=== PATIENT | male | born 1965 | race Caucasian/White ===

== ENCOUNTER 2017-06-18 20:04 | Inpatient (IN) | payer OTHER ==
[2017-06-18] MEDS ORDERED: Fentanyl 20 MCG/ML 250 ML ONE (20:14)
[2017-06-18] MEDS ORDERED: Fentanyl 100 MCG/2 ML VIAL ONE ×2 (20:20→20:31)
[2017-06-18 20:30] LABS: Oxyhemoglobin 88.8 % (94.0-97.0); Sodium 137 mmol/L (135-148)
[2017-06-18 20:32] LABS: Mechanical Tidal Volume 550 ml; Mode SIMV; Modified Allen's Test POSITIVE; Pressure Support 10 cmH2O; Vent YES
[2017-06-18 20:51] LABS: Bilirubin Negative (Negative); Blood, Urine Trace (Negative); Glucose, Urine (Dipstick) 250 mg/dL (Negative); Ketone, Urine Negative (Negative); Nitrite Negative (Negative); Protein, Urine (Dipstick) 30 mg/dL (Neg-Trace); Urobilinogen 0.2 mg/dL (0.2-1.0)
[2017-06-18 20:52] LABS: Bacteria/HPF None Seen HPF (None Seen); Hyaline Casts/LPF 4-6 HYALINE CAST LPF (0-3 Hyaline); RBC/HPF 0-3 HPF (0-3); Squamous Epithelial 0-3 HPF (0-3); WBC/HPF 0-3 HPF (0-3)
[2017-06-18 21:02] LABS: Amphetamine Not Detected (NotDetected); Methadone Not Detected (NotDetected); Methamphetamine Not Detected (NotDetected)
[2017-06-18 21:18] LABS: ALT (SGPT) 17 U/L (8-55); AST (SGOT) 27 U/L (5-34); Alkaline Phosphatase 76 U/L (40-150); Anion Gap 15 mmol/L (10-20); BUN (Urea Nitrogen) 10 mg/dL (8.4-25.7); Bilirubin, Total 0.5 mg/dL (0.2-1.2); CK (CPK) 327 U/L (30-200); Calc. Creatinine Clearance 0 mL/min (70-130); Calcium 9.3 mg/dL (7.8-10.44); Carbon Dioxide 30 mmol/L (22-29); Chloride 100 mmol/L (98-107); Estimated GFR-MDRD Greater than 90; Globulin 3.1 g/dL (2.4-3.5); Protein, Total 7.1 g/dL (6.0-8.3)
[2017-06-18 21:27] LABS: Troponin I 0.062 ng/mL (< 0.028)
[2017-06-18] MEDS ORDERED: HumaLOG 300 UNITS/3 ML VIAL SC PRN (21:34)
[2017-06-18] MEDS ORDERED: Ondansetron HCl/PF 4 MG/2 ML Vial IVP PRN (21:34)
[2017-06-18] MEDS ORDERED: Sedation Protocol FS ONE (21:34)
[2017-06-18 21:56] LABS: Band 9 % (5-11); Hematocrit 43.1 % (42.0-52.0); Metamyelocyte 2 % (0-0); Neutrophil 76 % (42-75); Reactive Lymphocytes 1 % (0-10); Red Blood Cell (RBC) Count 4.38 mill/uL (4.70-6.10)
[2017-06-18 22:02] LABS: Acetaminophen Less than 6.0 mcg/mL (10.0-30.0); Salicylate Less than 8.0 mg/dL (15.0-30.0)
[2017-06-18] MEDS ORDERED: Fentanyl 20 MCG/ML 250 ML IVPB SCH (22:05)
[2017-06-18] MEDS ORDERED: DISCONTINUE PREVIOUS NARCOTIC PAIN MEDICATIONS AND BENZODIAZEPINES FS SCH (22:05)
[2017-06-18] MEDS ORDERED: Dextrose 50% Abboject 50 ML SYRINGE IVP PRN (22:05)
[2017-06-18] MEDS ORDERED: Lorazepam 2 MG/ML VIAL SLOW IVP PRN (22:05)
[2017-06-18] MEDS ORDERED: Dextrose 5% in Water 1,000 ML IV PRN (22:05)
[2017-06-18] MEDS ORDERED: Propofol 1,000 MG/100 ML VIAL IV PRN (22:05)
[2017-06-18] MEDS ORDERED: Sodium Chloride 0.9% 1,000 ML IV SCH (22:21)
--- NOTE | 2017-06-18 22:37 | RAD ---
PORTABLE AP CHEST X-RAY 06/18/17 HISTORY: Altered mental status. COMPARISON: 06/13/11. Tracheostomy device is not longer seen, endotracheal tube is noted in place with the tip overlying t he T3-4 level and well above the level of aimee. Nasogastric tube is noted in place with tip overly ing the gastric fundus. There is atelectasis present at the right lung base. There is patchy parench ymal change sin the left mid lung zone which could be related to either atelectasis or focal area of pneumonitis. Aspiration pneumonitis could not be excluded. Cardiac silhouette and pulmonary vascula ture are within normal limits. No other interval change. IMPRESSION: 1. Endotracheal tube and nasogastric tube in place as described above. 2. Mild patchy density left mid lung zone. This could be related to volume loss, but developing pneumonia or aspiration pneumonitis cannot be entirely excluded. Followup evaluation is recommended . POS: [facility]
[2017-06-18 22:38] LABS: PTT 27.6 SEC (22.9-36.1); Prothrombin Time 12.3 SEC (12.0-14.7)
--- NOTE | 2017-06-18 23:10 | PDOC.EVN ---
Event Note - Event Note Event Note: Attending H&P I personally evaluated the patient and discussed the management with Dr. Leger. I have reviewed the written H&P and it is repeated by me. I agree with the History, Examination, Assessment and Plan documented above with any addition or exceptions noted below. Fiance, friend, community health navigator and [facility] scientologist meat team member are present at the bedside. He has a son. The scientologist meat team member has sent him a facebook msg to contact the hospital so we can talk to him. The community health navigator reports he has a medical POA/advance directive but he is unsure who has it. Mr Gu was found down by his fiance at approximately 5pm today. She awoke fro her nap and started looking for him at that time and found him down in the bathroom. The bathroom shelf was off the wall and on the ground with him suggesting he had pulled it down with him. He has a bruise/abrasion on his left frontal area, that was not present before his fall. Pat reports he was acting normal and no signs of illness (cough, fever, chest pain) prior to her taking at nap at 3pm. She notes he was drinking a lot of energy drinks, which is common for him. He doesn't much water. He ate a burger adn ice cream today for lunch. His appetite was good. He was intubated by EMS when they found him for airway protection for a GCS of 3. His labs are significant for an elevated WBC. Mildly elevated CPK, and indeterminate trops. His tox screen and UDS were negative. ABG shows significant A-a gradient. UA shows glucose. Head and neck CT report is pending. Neck collar remains in place. Chest xray shows left lower obe infiltrate. HPI suggest this could be aspiration pneumonia. He is comfortable with fentanyl drip, but arousable. His exam is significant for bilateral rhonchi. Pinpoint pupils. His HR is 95-100. Otherwise Vitals are normal. Mr Gu was found down, and at this time, the etiology is not confirmed. Several possibilities emerge from what we know: caffeine induced arrhythmia leading to syncope with head trauma from fall and aspiration pneumonia; pulmonary embolism leading to syncope with head trauma from fall and aspiration pneumonia; AMI leading to syncope with head trauma from fall and aspiration pneumonia; CAD leading to arrhythmia leading to syncope with head trauma from fall and aspiration pneumonia; accidental fall with head trauma from fall and aspiration pneumonia. In the meantime, we are starting empiric antibiotics for aspiration pneumonia, ordering a CTA of the chest, checking a caffeine level, and requesting an ethics consult to help establish medical decision maker. Dr Leger discussed case with Dr Sparks, who recommended sedation on the vent, and IV fluid therapy. DVT prophylasix. GI prophylaxis.
--- NOTE | 2017-06-18 23:14 | CT ---
CT HEAD WITHOUT IV CONTRAST 06/18/17 HISTORY: Altered mental status. Ramon coma scale of 3 on screen. Patient found unresponsive in bathroom at home. Forehead bruising. Pin point pupils. COMPARISON: 08/16/11. Nasogastric tube and endotracheal tubes are partially imaged. Low density focus is seen within the region of the anterior aspect body of the right caudate likely which has the appearance most likely attributable to remote lacunar infarction. There is a low densi ty area seen within the region of the left globus pallidus suggestive of a lacunar infarction of in determinate age. There is no acute cortical infarction, hemorrhage, mass effect, or midline shift. V entricular system is normal in size, shape, and position. There is mucosal thickening in the bilater al sphenoid sinuses and ethmoidal air cells with minimal air fluid level in the left maxillary antru m. The findings are probably related to intubation. Mastoid air cells are clear. Calvarial structure s are intact. There is minimal scalp soft tissue swelling in the bifrontal regions. No other interval change from prior exam. IMPRESSION: 1. Lacunar infarction left basal ganglia of indeterminate age. 2. Remote lacunar infarction in the body of the right caudate. 3. No acute cortical infarction or hemorrhage is seen. 4. Minimal fluid in the paranasal sinuses with opacification of a few ethmoidal air cells likel y related to intubation. POS: [facility]
--- NOTE | 2017-06-18 23:18 | CT ---
CT CERVICAL SPINE WITHOUT IV CONTRAST 06/18/17 HISTORY: Altered mental status. Stow coma scale of 3. Patient found unresponsive at home. COMPARISON: 08/02/11. TECHNIQUE: Contiguous axial CT images are obtained through the cervical spine from skull base through the cervi cothoracic junction. Sagittal and coronal reformat images are provided. FINDINGS: Endotracheal and nasogastric tubes are noted in place. Nasopharyngeal airway also noted in place. Tiny air fluid levels are seen in the left maxillary antrum and each sphenoid sinus likely related t o the intubation. 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 No fracture or subluxation is seen inv olving the cervical spine. There are a few scattered facet degenerative changes noted. Prevertebral soft tissues are within normal limits. IMPRESSION: 1. No acute fracture or subluxation involving the cervical spine. 2. Additional findings are as described above. POS: [facility]
[2017-06-18] MEDS: Sodium Chloride 0.9% 1,000 ML IV SCH (23:22)
[2017-06-18] MEDS: Ampicillin/Sulbactam 3 GM in Sodium Chloride 0.9% 100 ML IVPB SCH (23:32)
[2017-06-19 00:22] LABS: Troponin I 0.091 ng/mL (< 0.028)
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
[2017-06-19 02:50] LABS: #Basophils 0.1 thou/uL (0.0-0.2); #Eosinphils 0.1 thou/uL (0.0-0.7); #Lymphocytes 2.2 thou/uL (1.20-3.40); #Neutrophils 9.7 thou/uL (1.40-6.50); %Basophils 0.6 % (0.0-1.0); %Eosinophils 0.5 % (0.0-10.0); %Lymphocytes 16.9 % (21.0-51.0); %Monocytes 7.8 % (0.0-10.0); Mean Platelet Volume 6.5 fL (7.4-10.4); Red Blood Cell (RBC) Count 3.88 mill/uL (4.70-6.10); White Blood Cell (WBC) Count 13.1 thou/uL (4.8-10.8)
[2017-06-19 03:18] LABS: Anion Gap 11 mmol/L (10-20); BUN (Urea Nitrogen) 10 mg/dL (8.4-25.7); Calc. Creatinine Clearance 130 mL/min (70-130); Calcium 8.7 mg/dL (7.8-10.44); Carbon Dioxide 28 mmol/L (22-29); Chloride 105 mmol/L (98-107); Estimated GFR-MDRD Greater than 90
[2017-06-19 03:19] LABS: Troponin I 0.078 ng/mL (< 0.028)
[2017-06-19] MEDS: Ampicillin/Sulbactam 3 GM in Sodium Chloride 0.9% 100 ML IVPB SCH ×4 (05:02→23:25)
[2017-06-19 06:47] LABS: Oxyhemoglobin 97.6 % (94.0-97.0); Sodium 140 mmol/L (135-148)
[2017-06-19 06:48] LABS: Mechanical Tidal Volume 550 ml; Vent YES
[2017-06-19 06:49] LABS: Mode SIMV; Pressure Support 10 cmH2O
--- NOTE | 2017-06-19 07:07 | PDOC.FM ---
- Subjective Subjective: Patient mildly sedated and intubate. Responsive other than verbal. Follows commands. Denies memory of incident. Denies chest, head, abdominal pain. Hx of CVA. - Objective MAR Reviewed: Yes Vital Signs & Weight: Vital Signs (12 hours) Temp Pulse Resp BP Pulse Ox 06/19/17 07:00 100.4 F H 06/19/17 06:17 86 06/19/17 06:00 20 06/19/17 04:00 99.6 F 16 06/19/17 03:17 80 06/19/17 02:00 14 06/19/17 00:00 99.4 F 14 100 06/18/17 22:17 98 06/18/17 22:15 99.4 F 87 18 100 06/18/17 22:14 91 142/95 H 06/18/17 22:00 99.4 F Weight Weight 77.4 kg Most Recent Monitor Data Heart Rate from ECG 87 NIBP 153/81 NIBP BP-Mean 94 Respiration from ECG 17 SpO2 99 I&O: 06/18/17 06/19/17 06/20/17 06:59 06:59 06:59 Intake Total 1774 100 Output Total 725 40 Balance 1049 60 Result Diagrams: 06/19/17 02:41 06/19/17 02:41 Radiology: developing PNA or pneumonitis <Bre Howell - Last Filed: 06/19/17 11:08> - Objective Vital Signs & Weight: Vital Signs (12 hours) Temp Pulse Resp Pulse Ox 06/19/17 20:00 99.1 F 76 20 98 06/19/17 19:00 99.1 F 06/19/17 16:00 99.1 F 06/19/17 12:00 99.9 F H 97 06/19/17 09:04 99 18 96 Weight Weight 77.4 kg Most Recent Monitor Data Heart Rate from ECG 73 NIBP 137/80 NIBP BP-Mean 104 Respiration from ECG 21 SpO2 98 I&O: 06/18/17 06/19/17 06/20/17 06:59 06:59 06:59 Intake Total 1830.6 2033 Output Total 725 1620 Balance 1105.6 413 Result Diagrams: 06/19/17 02:41 06/19/17 02:41 <Helen Montiel - Last Filed: 06/19/17 21:07> Phys Exam - Physical Examination Constitutional: NAD intubated Respiratory: no wheezing rhonchi bilaterally Cardiovascular: RRR, no significant murmur Gastrointestinal: soft, non-tender, no distention, positive bowel sounds Musculoskeletal: no edema, pulses present (2+ post tibial ) Neurological: non-focal, moves all 4 limbs shakes head in response to questions, follow command with all 4 extremities <Bre Howell - Last Filed: 06/19/17 11:08> Dx/Plan (1) Encephalopathy acute Code(s): G93.40 - ENCEPHALOPATHY, UNSPECIFIED Status: Acute Plan: patient found down at home in bathroom. GCS of 3 on scene so RSI performed. Now appears neurologically intact and following commands. Troponins indeterminant but downtrending. CTA pending. TSH wnl. tachycardia for brief time overnight but no other arrhythmias noted since admission Likely extubate later this morning (2) Aspiration pneumonia Code(s): J69.0 - PNEUMONITIS DUE TO INHALATION OF FOOD AND VOMIT Status: Acute Plan: evidence for PNA on CXR and fever this morning. Will cover iwth unasyn <Bre Howell - Last Filed: 06/19/17 11:08> Attending Addendum - Attending Addendum I personally evaluated the patient and discussed the management with Dr. Howell I agree with the History, Examination, Assessment and Plan documented above with any addition or exceptions noted below- Patient now extubated. Does not recall events. Last thing he remembers was walking into the bathroom. Afebrile VSS A/P: 1) Acute encephalopathy- unclear etiology; continue to monitor. 2) Aspiration pneumonia- continue unasyn. <Helen Montiel - Last Filed: 06/19/17 21:07>
--- NOTE | 2017-06-19 08:16 | CT ---
PRELIMINARY REPORT/[facility]/EMERGENCY AFTER HOURS PROCEDURE: EXAM: CT Angiography Chest With Intravenous Contrast EXAM DATE/TIME: Exam ordered 06/19/2017 3:44 AM CLINICAL HISTORY: 52 years old, male; Signs and symptoms; Other: Unresponsive; Patient HX: M52 presents to ed via air ems. Ems reports patient was gcs of 3 on the scene. He was found unresponsive in his bathroom at [facility]. Ems reports forehead bruise and the patient with pinpoint pupils prior to rsi TECHNIQUE: Axial computed tomographic angiography images of the chest with intravenous contrast using pulmonary embolism protocol. Coronal reformatted images were created and reviewed. CONTRAST: 70 mL of isovue 370 administered intravenously. COMPARISON: No relevant prior studies available. FINDINGS: Pulmonary arteries: There is no evidence of peripheral filling defects within the pulmonary arterial circulation to suggest pulmonary embolism. Aorta: No acute findings. No thoracic aortic aneurysm. Lungs: There are bibasilar lung consolidations with patchy opacities in the RIGHT upper lobe suspici ous for pneumonia. Pleural space: No large effusion. No pneumothorax. Heart: Normal. No cardiomegaly. No significant pericardial effusion. No evidence of RV dysfunction. Bones/joints: No acute fracture. No dislocation. Soft tissues: Normal. Lymph nodes: Normal. No enlarged lymph nodes. Tubes, lines and devices: A nasogastric tube is present with tip at the gastroesophageal junction. A n endotracheal tube is present, lying with its tip 4 cm above the aimee. IMPRESSION: 1. There is no CT evidence of acute pulmonary embolism. 2. There are bibasilar lung consolidations with patchy opacities in the RIGHT upper lobe suspicious for pneumonia. 3. A nasogastric tube is present with tip at the gastroesophageal junction. Consider advancing by at least 4 cm. Thank you for allowing us to participate in the care of your patient. Dictated and Authenticated by: Sabino Olvera MD 06/19/2017 4:36 AM Central Time ([place] \T\ Alex) FINAL REPORT CTA CHEST WITH IV CONTRAST, 3D REFORMATTED IMAGES AND PE PROTOCOL: Agree with the preliminary report provided. 1. No acute central or segmental pulmonary embolism. Thee is bilateral lower lower lobe and right upper lobe consolidation which can be seen with pneumonia or aspiration. 2. NG tube is at the gastroesophageal junction. Recommend advancement. POS: [facility]
[2017-06-19] MEDS: Sodium Chloride 0.9% 1,000 ML IV SCH (08:35)
[2017-06-19] MEDS: Enoxaparin Sodium 40 MG/0.4 ML SYRINGE SC SCH (08:35)
[2017-06-19] MEDS ORDERED: Famotidine/PF 20 mg/2ml Vial SLOW IVP SCH (09:00)
[2017-06-19] MEDS ORDERED: Sodium Chloride 0.9% 1,000 ML IV SCH (11:02)
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
[2017-06-19] MEDS: Acetaminophen 325 MG TAB PO PRN (12:57)
[2017-06-19] MEDS ORDERED: Nicotine 21 MG PATCH TD SCH (13:00)
--- NOTE | 2017-06-19 14:11 | MRI ---
MRI BRAIN WITHOUT CONTRAST: History: Altered mental status, syncope. FINDINGS: Correlation is made with the previous day's CT scan. No restricted diffusion is seen. There is an old infarct in the right caudate. No evidence of transc ortical infarct, hemorrhage, midline shift, or abnormal extraaxial fluid collections are seen. The v entricular size is normal and the basal cisterns patent. There is mucosal disease in the paranasal s inuses. There is a small amount of fluid in the mastoid air cells. IMPRESSION: No evidence of acute intracranial process. POS: [facility]
[2017-06-19] MEDS: Pregabalin 75 MG CAP PO SCH (19:23)
[2017-06-19] MEDS: Acetaminophen/Codeine 30-300mg Tablet PO PRN (19:23)
[2017-06-19] MEDS: traZODone HCl 150 MG TAB PO SCH (19:24)
[2017-06-20 04:39] LABS: #Basophils 0.1 thou/uL (0.0-0.2); #Eosinphils 0.3 thou/uL (0.0-0.7); #Lymphocytes 2.2 thou/uL (1.20-3.40); #Monocytes 0.5 thou/uL (0.11-0.59); #Neutrophils 4.5 thou/uL (1.40-6.50); %Basophils 0.7 % (0.0-1.0); %Eosinophils 3.4 % (0.0-10.0); %Lymphocytes 29.5 % (21.0-51.0); %Monocytes 6.9 % (0.0-10.0); Mean Platelet Volume 7.4 fL (7.4-10.4); Red Blood Cell (RBC) Count 3.73 mill/uL (4.70-6.10); White Blood Cell (WBC) Count 7.5 thou/uL (4.8-10.8)
[2017-06-20 04:57] LABS: Anion Gap 10 mmol/L (10-20); BUN (Urea Nitrogen) 9 mg/dL (8.4-25.7); Calc. Creatinine Clearance 139 mL/min (70-130); Calcium 8.8 mg/dL (7.8-10.44); Carbon Dioxide 30 mmol/L (22-29); Chloride 102 mmol/L (98-107); Estimated GFR-MDRD Greater than 90
[2017-06-20] MEDS: Ampicillin/Sulbactam 3 GM in Sodium Chloride 0.9% 100 ML IVPB SCH (06:03)
--- NOTE | 2017-06-20 06:57 | PDOC.FM ---
- Subjective Subjective: Patient awake and alert. He states he has had pre-syncopal episodes for a while now and they occur approx once a week. They occur randomly without warning. He feels lightheaded and sometimes dizzy. It resolves over period of minutes after sitting and resting. Family was at bedside and assisted with some of history obtained yesterday. He was in hospital for similar episode back in 07/2011. Records reviewed from that visit indicate he had an out of hospital cardiac arrest thought to be secondary to overdose. No major neural deficit but is apparently not completing all ADLs. Living alone. He also has long history of narcotic abuse per patient's sister. He has been in and out of rehab numerous times. 35 pack year smoking history. - Objective Vital Signs & Weight: Vital Signs (12 hours) Temp Pulse Resp Pulse Ox 06/20/17 04:00 98.3 F 06/20/17 02:00 98.1 F 06/19/17 20:00 99.1 F 76 20 98 06/19/17 19:00 99.1 F Weight Weight 77.9 kg Most Recent Monitor Data Heart Rate from ECG 68 NIBP 119/55 NIBP BP-Mean 69 Respiration from ECG 19 SpO2 97 I&O: 06/18/17 06/19/17 06/20/17 06:59 06:59 06:59 Intake Total 1830.6 2695 Output Total 725 2320 Balance 1105.6 375 Result Diagrams: 06/20/17 03:56 06/20/17 03:56 Radiology: MRI BRAIN- no acute intracranial process. 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 chest CTA- no PE, evidence for BLL, RUL consolidation. ECHO- EF 55-60%, trace TR. <Bre Howell - Last Filed: 06/20/17 09:40> - Objective Vital Signs & Weight: Vital Signs (12 hours) Temp Pulse Resp Pulse Ox 06/20/17 07:15 98.6 F 69 22 H 97 06/20/17 07:00 98.6 F 06/20/17 04:00 98.3 F 06/20/17 02:00 98.1 F Weight Weight 77.9 kg Most Recent Monitor Data Heart Rate from ECG 82 NIBP 113/68 NIBP BP-Mean 78 Respiration from ECG 20 SpO2 97 I&O: 1006/20/17 06/21/17 06:59 06:59 06:59 Intake Total 1830.6 2695 786 Output Total 725 2320 800 Balance 1105.6 375 -14 Result Diagrams: 06/20/17 03:56 06/20/17 03:56 <Helen Montiel - Last Filed: 06/20/17 10:09> Phys Exam - Physical Examination Constitutional: NAD HEENT: PERRLA, moist MMs Respiratory: no wheezing, no rhonchi, clear to auscultation bilateral Cardiovascular: RRR Gastrointestinal: soft, non-tender, positive bowel sounds Musculoskeletal: no edema, pulses present Neurological: non-focal, normal sensation, moves all 4 limbs Psychiatric: A&O x 3 <Bre Howell - Last Filed: 06/20/17 09:40> Dx/Plan (1) Syncope and collapse Code(s): R55 - SYNCOPE AND COLLAPSE Status: Acute Plan: Unexplained diagnosis. No evidence for CVA on MRI. CTA head and neck this AM. no events on cardiac monitoring. electrolytes wnl at admission. No pulsatile mass appreciated in abdomen. BP have been stable throughout much of hospitalization. Only elevation occurred during spont breathing trial. Normal EF on ECHO and no evidence for failure. check orthostatics. Consult cardiology for possible event monitor and recommendations (2) Aspiration pneumonia Code(s): J69.0 - PNEUMONITIS DUE TO INHALATION OF FOOD AND VOMIT Status: Acute Plan: Day 3 of unasyn, likely transition to oral augmentin today or tomorrow. Remained afebrile overnight. (3) Encephalopathy acute Code(s): G93.40 - ENCEPHALOPATHY, UNSPECIFIED Status: Resolved (4) Respiratory failure requiring intubation Code(s): J96.90 - RESPIRATORY FAILURE, UNSP, UNSP W HYPOXIA OR HYPERCAPNIA Status: Resolved Plan: Intubated in field for GCS of 3 to protect airway. Extuated 06/19/17 (5) History of tobacco abuse Code(s): Z87.891 - PERSONAL HISTORY OF NICOTINE DEPENDENCE Status: Chronic Plan: nicoderm given . <Bre Howell - Last Filed: 06/20/17 09:40> Attending Addendum - Attending Addendum I personally evaluated the patient and discussed the management with Dr. Muehr. I agree with the History, Examination, Assessment and Plan documented above with any addition or exceptions noted below- Patient awake/alert. Denies any complaints. Afebrile VSS. A/P: 1) Syncope- h/o pre-syncopal events. Denies any associated palpitations or chest pain. Resolves with rest/sitting after 10-15 minutes. No dysrhythmias on monitor. Will have cardiology evaluate patient. 2) Aspiration pneumonitis- transition to po antibiotics today, 3) Acute encephalopathy-resolved. <Helen Montiel - Last Filed: 06/20/17 10:09>
[2017-06-20] MEDS ORDERED: Potassium Chloride 20 MEQ TAB PO SCH ×2 (08:00→09:45)
--- NOTE | 2017-06-20 08:06 | CT ---
PRELIMINARY REPORT/[facility]/EMERGENCY AFTER HOURS PROCEDURE: EXAM: CT Head Without Intravenous Contrast CLINICAL HISTORY: 52 years old, male; Signs and symptoms; Syncope and collapse; Patient HX: Syncope and collapse; Pt w as found down in shower. H/x abrasion on forehead. No surgery TECHNIQUE: Axial computed tomography images of the head/brain without intravenous contrast. COMPARISON: CT Brain WO Con 06/18/2017 9:01:12 PM FINDINGS: Brain: No acute findings. No hemorrhage. No significant white matter disease. No edema. Ventricles: No acute findings. No ventriculomegaly. Bones/joints: No acute findings. No acute fracture. Soft tissues: No acute findings. Sinuses: Unremarkable as visualized. No acute sinusitis. Mastoid air cells: Unremarkable as visualized. No mastoid effusion. IMPRESSION: No acute intracranial pathology. Thank you for allowing us to participate in the care of your patient. Dictated and Authenticated by: Sandhya Nowak MD 06/20/2017 5:34 AM Central Time ( \T\ [place]) EXAM: CT Angiography Head With Intravenous Contrast CLINICAL HISTORY: 52 years old, male; Signs and symptoms; Syncope and collapse; Patient HX: Syncope and collapse; Pt w as found down in shower. H/x abrasion on forehead. No surgery TECHNIQUE: Axial computed tomographic angiography images of the head with intravenous contrast using CT angiogr aphy protocol. Coronal and sagittal reformatted images were created and reviewed. CONTRAST: 95 mL of ISOVUE 370 administered intravenously. COMPARISON: No relevant prior studies available. FINDINGS: Right internal carotid artery: No acute findings. Intracranial segment is patent with no significant stenosis. No aneurysm. Right anterior cerebral artery: No acute findings. No occlusion or significant stenosis. No aneurysm . Right middle cerebral artery: No acute findings. No occlusion or significant stenosis. No aneurysm. Right posterior cerebral artery: No acute findings. No occlusion or significant stenosis. No aneurys m. Right vertebral artery: Unremarkable as visualized. Left internal carotid artery: No acute findings. Intracranial segment is patent with no significant stenosis. No aneurysm. Left anterior cerebral artery: No acute findings. No occlusion or significant stenosis. No aneurysm. Left middle cerebral artery: No acute findings. No occlusion or significant stenosis. No aneurysm. Left posterior cerebral artery: No acute findings. No occlusion or significant stenosis. No aneurysm . Left vertebral artery: Unremarkable as visualized. Basilar artery: No acute findings. No occlusion or significant stenosis. No aneurysm. IMPRESSION: No acute disease identified. No stenosis, occlusion, aneurysm, or dissection. EXAM: CT Angiography Neck With Intravenous Contrast CLINICAL HISTORY: 52 years old, male; Signs and symptoms; Syncope and collapse; Patient HX: Syncope and collapse; Pt w as found down in shower. H/x abrasion on forehead. No surgery TECHNIQUE: Axial computed tomographic angiography images of the neck with intravenous contrast using CT angiogr aphy protocol. CONTRAST: 95 mL of ISOVUE 370 administered intravenously. COMPARISON: CTA Angio Head W WO Joseph 06/20/2017 4:04:29 AM FINDINGS: VASCULATURE: Right common carotid artery: No acute findings. No significant stenosis. No dissection or occlusion. Right internal carotid artery: No acute findings. Extracranial segment is patent with no significant stenosis. No dissection or occlusion. Right external carotid artery: No acute findings. No occlusion. Right vertebral artery: No acute findings. No significant stenosis. No dissection or occlusion. Left common carotid artery: No acute findings. No significant stenosis. No dissection or occlusion. Left internal carotid artery: No acute findings. Extracranial segment is patent with no significant stenosis. No dissection or occlusion. Left external carotid artery: No acute findings. No occlusion. Left vertebral artery: No acute findings. No significant stenosis. No dissection or occlusion. NECK: Bones/joints: Chronic degenerative spinal changes without acute fracture or dislocation. Soft tissues: Unremarkable as visualized. No mass. CAROTID STENOSIS REFERENCE USING NASCET CRITERIA: % ICA stenosis = < 5 percent bilaterally. IMPRESSION: No acute disease identified. No stenosis, occlusion, aneurysm, or dissection. Thank you for allowing us to participate in the care of your patient. Dictated and Authenticated by: Sandhya Nowak MD 06/20/2017 5:41 AM Central Time ([place] \T\ [place]) FINAL REPORT HEAD CT WITHOUT CONTRAST CT ANGIOGRAM HEAD CT ANGIOGRAM NECK: DATE: 06/20/17. COMPARISON: None. HISTORY: Syncope, collapse, found down in shower. FINDINGS: Noncontrast-enhanced head CT as well as contrast-enhanced CT angiogram of head and neck provided. C T angiogram of head and neck performed with coronal and sagittal 3D reformatted imaging. I agree with the preliminary [facility] report. The noncontrast-enhanced head CT demonstrates mild mucosal thickening of the left maxillary sinus an d bilateral sphenoid sinuses. No displaced calvarial fracture is seen. There is no intracranial he morrhage, midline shift, mass effect, or ventricular enlargement. There is a small focus of low-den sity in the region of the caudate head on the right suggesting an area of prior ischemia. CT angiogram head demonstrates patency of bilateral distal vertebral arteries. A small focal area o f fenestration is seen involving the proximal aspect of the basilar artery. Basilar artery appears otherwise unremarkable. Bilateral posterior cerebral arteries/P1 segments are patent. The M1 and A 1 segment is patent. Bilateral MCA bifurcations, distal MCA branches, distal MAVERICK branches appear in tact. No hemodynamically significant stenosis, vascular occlusion or saccular aneurysm is seen invo lving the anterior or posterior circulation. CT angiogram of the neck demonstrates a normal appearance of the bilateral retroantral and paraphary ngeal fat. The parotid and submandibular glands appear grossly unremarkable. Evaluation of the upper lobes is slightly limited secondary to motion artifact. There is a suggesti on of a subtle patchy nodularity within the imaged right upper lobe, not mentioned in the preliminar y [facility] report. The origin of the innominate artery, left common carotid artery, left subclavian artery, right commo n carotid artery, and right subclavian artery demonstrate patency. There is mild atherosclerotic ca lcification at the origin of the left subclavian artery. Bilateral vertebral arteries are patent. There is no hemodynamically significant stenosis involving the common carotid or internal carotid artery on either side. Osseous structures demonstrate no acute osseous abnormality. IMPRESSION: 1. Noncontrast-enhanced head CT demonstrates no intracranial hemorrhage. 2. CT angiogram of the head and neck demonstrates patent arterial structures with no evidence for h emodynamically significant stenosis, arterial occlusion, or saccular aneurysm. 3. There is subtle patchy nodularity involving the imaged right upper lobe, which may be on the bas is of inflammatory/infectious pneumonitis. Recommend further assessment via chest radiograph. CODE T POS: [facility]
[2017-06-20] MEDS: Pregabalin 75 MG CAP PO SCH ×2 (08:51→20:20)
[2017-06-20] MEDS: Enoxaparin Sodium 40 MG/0.4 ML SYRINGE SC SCH (08:53)
[2017-06-20] MEDS: Nicotine 21 MG PATCH TD SCH (08:54)
[2017-06-20] MEDS ORDERED: FLU VACC QS2017-18 36 mo. & older 0.5 ML SYRINGE IM ONE (09:00)
[2017-06-20] MEDS: Acetaminophen/Codeine 30-300mg Tablet PO PRN (09:06)
--- NOTE | 2017-06-20 09:56 | PRG ---
DATE OF SERVICE: 06/20/2017 SERVICE: Pulmonary Medicine. INTERVAL HISTORY: The patient is doing great from a cardiovascular and respiratory standpoint. He is on room air and denies any shortness of breath or chest discomfort. Otherwise, there has been no change to his condition. There were no overnight events. PHYSICAL EXAMINATION: VITAL SIGNS: Afebrile, pulse 69, blood pressure 120/71, respirations 19, saturation 97% on room air . GENERAL: The patient is awake, alert, in no apparent distress. LUNGS: Excellent air entry with no prolonged expiratory phase, wheezing, rhonchi or crackles. HEART: Normal rate, regular. ABDOMEN: Soft, nontender, nondistended. Bowel sounds positive. MUSCULOSKELETAL: No cyanosis or clubbing. No pitting in the bilateral lower extremities. NEUROLOGIC: Grossly nonfocal. LABORATORY DATA: WBC 7.5, hemoglobin 12.2, and platelet 238,000. INR 0.9. Potassium 3.4. Basic m etabolic profile is otherwise unremarkable. Troponin is down trending to 0.078. IMAGING: CT of the [place] of [place] demonstrates no intracranial pathology. ASSESSMENT: 1. Acute hypoxic respiratory failure. 2. Community-acquired pneumonia, likely secondary to aspiration. 3. Chronic back pain. 4. Syncope. PLAN: Potassium will be replaced today. From my perspective, he is stable for transition out of e ICU to the telemetry unit where he can be monitored on telemetry for any cardiac events. I will c ontinue to follow for one additional day to verify the patient remains in stable condition.
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
[2017-06-20] MEDS: Ibuprofen 600 MG TAB PO PRN ×2 (14:12→20:20)
[2017-06-20] MEDS: Amoxicillin/Potassium Clav 875 MG TAB PO SCH (20:20)
[2017-06-20] MEDS: traZODone HCl 150 MG TAB PO SCH (20:20)
[2017-06-21 05:36] LABS: Hematocrit 41.4 % (42.0-52.0)
[2017-06-21 05:50] LABS: Anion Gap 11 mmol/L (10-20); BUN (Urea Nitrogen) 9 mg/dL (8.4-25.7); Calc. Creatinine Clearance 143 mL/min (70-130); Calcium 9.2 mg/dL (7.8-10.44); Carbon Dioxide 26 mmol/L (22-29); Chloride 106 mmol/L (98-107); Estimated GFR-MDRD Greater than 90; Magnesium 1.9 mg/dL (1.6-2.6)
[2017-06-21] MEDS ORDERED: Potassium Chloride 20 MEQ TAB PO SCH ×2 (08:00→12:00)
[2017-06-21] MEDS: Pregabalin 75 MG CAP PO SCH (08:44)
[2017-06-21] MEDS: Enoxaparin Sodium 40 MG/0.4 ML SYRINGE SC SCH (08:46)
--- NOTE | 2017-06-21 10:35 | PDOC.FM ---
- Subjective Subjective: Patient is doing well this morning without complaints. He has tolerated a diet well and transition off ventilator has went well. Has remained in Sinus rhythm since transfer to [facility]. Unclear still what caused his presumed syncopal episode. He is going for a stress test today. - Objective Vital Signs & Weight: Vital Signs (12 hours) Temp Pulse Resp BP BP BP Pulse Ox 06/21/17 08:38 98.2 F 89 17 154/80 H 145/81 H 149/82 H 99 06/21/17 04:06 97.7 F 73 18 133/73 96 06/21/17 00:29 95 Weight Weight 75.977 kg Most Recent Monitor Data Heart Rate from ECG 70 NIBP 113/68 NIBP BP-Mean 78 Respiration from ECG 18 SpO2 96 I&O: 06/20/17 06/21/17 06/22/17 06:59 06:59 06:59 Intake Total 2695 1176 Output Total 2320 2750 Balance 375 1574 Result Diagrams: 06/21/17 05:20 06/21/17 05:20 <Bre Howell - Last Filed: 06/21/17 10:33> - Objective Vital Signs & Weight: Vital Signs (12 hours) Temp Pulse Resp BP BP BP Pulse Ox 06/21/17 08:38 98.2 F 89 17 154/80 H 145/81 H 149/82 H 99 06/21/17 04:06 97.7 F 73 18 133/73 96 06/21/17 00:29 95 Weight Weight 75.977 kg Most Recent Monitor Data Heart Rate from ECG 70 NIBP 113/68 NIBP BP-Mean 78 Respiration from ECG 18 SpO2 96 I&O: 06/20/17 06/21/17 06/22/17 06:59 06:59 06:59 Intake Total 2695 1176 Output Total 2320 2750 Balance 375 1574 Result Diagrams: 06/21/17 05:20 06/21/17 05:20 <Helen Montiel - Last Filed: 06/21/17 10:51> Phys Exam - Physical Examination Constitutional: NAD HEENT: PERRLA, moist MMs Respiratory: no wheezing, no rales, no rhonchi, clear to auscultation bilateral Cardiovascular: RRR, no significant murmur Gastrointestinal: soft, non-tender Musculoskeletal: no edema Neurological: non-focal, moves all 4 limbs Psychiatric: A&O x 3 Deviation from normal: not very verbose in answering questions. <Bre Howell - Last Filed: 06/21/17 10:33> Dx/Plan (1) Syncope and collapse Code(s): R55 - SYNCOPE AND COLLAPSE Status: Acute Plan: Unexplained diagnosis. No evidence for CVA on MRI. CTA head wnl no events on cardiac monitoring. electrolytes wnl at admission. No pulsatile mass appreciated in abdomen. BP have been stable throughout much of hospitalization. Normal EF on ECHO and no evidence for failure. Plan for stress today and likely DC if this is negative. He will need to follow up with cardiology if an event monitor were considered outpatient . (2) Aspiration pneumonia Code(s): J69.0 - PNEUMONITIS DUE TO INHALATION OF FOOD AND VOMIT Status: Acute Plan: Patient now on augmentin and will need to cont for 3 more days. (3) Encephalopathy acute Code(s): G93.40 - ENCEPHALOPATHY, UNSPECIFIED Status: Resolved (4) Respiratory failure requiring intubation Code(s): J96.90 - RESPIRATORY FAILURE, UNSP, UNSP W HYPOXIA OR HYPERCAPNIA Status: Resolved Plan: Intubated in field for GCS of 3 to protect airway. Extuated 06/19/17 (5) History of tobacco abuse Code(s): Z87.891 - PERSONAL HISTORY OF NICOTINE DEPENDENCE Status: Chronic Plan: nicoderm given .smoking cessation recommended <Bre Howell - Last Filed: 06/21/17 10:33> Attending Addendum - Attending Addendum I personally evaluated the patient and discussed the management with Dr. Howell I agree with the History, Examination, Assessment and Plan documented above with any addition or exceptions noted below- Patient c/o LANE. Ambulating/ tolerating diet. Afebrile VSS A/P: 1) Possible syncopal episode- workup negative to date; Appreciate cardiology recommendations; plan for stress test today and discharge if negative. 2) Aspiration pneumonitis- continue oral abx, 3 ) Acute encephalopathy- resolved. <Helen Montiel - Last Filed: 06/21/17 10:51>
[2017-06-21] MEDS: Acetaminophen 325 MG TAB PO PRN ×2 (11:32→17:33)
--- NOTE | 2017-06-21 12:21 | PDOC.CTH ---
Cardiology Progress Note - Subjective He is doing well. No new issues or complaints. - Objective Vital Signs Temp Pulse Resp BP BP BP Pulse Ox 06/21/17 11:16 98.1 F 95 18 135/79 98 06/21/17 08:38 98.2 F 89 17 154/80 H 145/81 H 149/82 H 17 L 06/21/17 04:06 97.7 F 73 18 133/73 96 06/21/17 00:29 95 Weight 167 lb 8 oz 06/20/17 06/21/17 06/22/17 06:59 06:59 06:59 Intake Total 2695 1176 Output Total 2320 2750 Balance 375 -1574 - Physical Examination General/Neuro: alert & oriented x3, NAD Neck: no JVD present Lungs: CTA, unlabored respirations Heart: RRR Abdomen: NT/ND Extremities: other: (no edema.) - Telemetry Telemetry Rhythm: NSR - Labs Result Diagrams: 06/21/17 05:20 06/21/17 05:20 Troponin/CKMB CK-MB (CK-2) 2.1 ng/mL (0-6.6) 06/18/17 20:46 Troponin I 0.078 ng/mL (< 0.028) H 06/19/17 02:41 - Assessment/Plan 1. Unresponsiveness 2. Possible syncope 3. Hx of substance abuse/. 4. Ongoing tobacco use PLAN: - Nuclear MPI to be done today. - Replace K - If stress is normal he may be discharged home from cardiac perspective and follow up in 2 weeks in the office.
--- NOTE | 2017-06-21 14:05 | CON ---
DATE OF CONSULTATION: 06/21/2017 SERVICE: Pulmonary Medicine. INTERVAL HISTORY: The patient is doing fine from a cardiovascular and respiratory standpoint. He c urrently denies any fevers, chills, nausea, or vomiting. He is breathing comfortably. He has no sp ecific complaints at this time. There were no overnight events. PHYSICAL EXAMINATION: VITAL SIGNS: Afebrile, pulse 89, blood pressure 154/80, respirations 17, saturation 99% on room air . GENERAL: Patient is awake, alert, in no apparent distress. LUNGS: Decent air entry with no prolonged expiratory phase, wheezing, rhonchi, or crackles. HEART: Normal rate, regular. ABDOMEN: Soft, nontender, nondistended. Bowel sounds positive. MUSCULOSKELETAL: No cyanosis or clubbing. No pitting in the bilateral lower extremities. NEUROLOGIC: Grossly nonfocal. LABORATORY DATA: Hemoglobin 13.4. Basic metabolic profile is essentially unremarkable except for p otassium of 3.4, magnesium 1.9. ASSESSMENT: 1. Acute hypoxic respiratory failure, resolved. 2. Community-acquired pneumonia, secondary aspiration. 3. Chronic back pain. 4. Syncope. PLAN: We will continue replacing potassium. At this point, he has no ongoing need for inpatient Pu lmonary Critical Care opinion. As such, I will sign off. He can complete a 5-7 day course of antib iotic. Repeat chest x-ray in 6 weeks is indicated to make certain left mid lung zone infiltrate res olves. Please call if there are any changes in patient's condition.
[2017-06-21] MEDS: Nicotine 21 MG PATCH TD SCH (14:45)
[2017-06-21] MEDS: Amoxicillin/Potassium Clav 875 MG TAB PO SCH (14:45)
[2017-06-21] MEDS: Ibuprofen 600 MG TAB PO PRN (14:49)
[2017-06-21 15:46] VITALS: BP 133/77; TEMP 98.1
[2017-06-21] MEDS ORDERED: Regadenoson 0.4 MG/5 ML SYRINGE ONE (16:38)
--- NOTE | 2017-06-21 16:49 | NM ---
NUCLEAR MEDICINE CARDIAC PERFUSION EXAMINATION WITH EJECTION FRACTION 06/21/17 COMPARISON: None. HISTORY: 52-year-old male with syncope. history of stroke and coronary artery disease. TECHNIQUE: A single day nuclear medicine cardiac perfusion examination was performed. Rest images were obtained using 9 millicuries of technetium 99m Sestamibi. Stress images were obtained using 27 millicuries o f technetium 99m Sestamibi and Lexiscan. FINDINGS: Tomographic images show no fixed or reversible perfusion defects. Gated images show normal wall ulices on with ejection fraction of 61%. EDV is 122 mL. LHR is 0.1. TID is 1.1. IMPRESSION: No evidence of ischemia. POS: [facility]
--- NOTE | 2017-06-24 11:18 | DIS-2 ---
DATE OF ADMISSION: 06/18/2017 DATE OF DISCHARGE: 06/21/2017 ADMITTING ATTENDING: Dr. Alexander Scott. DISCHARGE ATTENDING: Dr. Helen Montiel. CONSULTATIONS: 1. Dr. Roblero, Pulmonology. 2. Dr. Garcai, Cardiology. DISCHARGE DIAGNOSES: 1. Acute encephalopathy requiring intubation secondary to unresponsiveness. 2. Possible syncope. 3. Tobacco abuse. 4. Aspiration pneumonia. 5. Depression. 6. History of substance abuse. 7. Hypokalemia, resolved. PROCEDURES AND IMAGIN. Cervical spine CT was performed on 06/18/2017 showing no acute fracture or subluxation involving the cervical spine. 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 2. Brain CT on 06/18/2017 showed lacunar infarction left basil ganglia of indeterminate age, remote lacunar infarction in the body of the right caudate, there was no acute cortical infarction or hemo rrhage seen. There was minimal fluid in the paranasal sinuses with opacification of a few ethmoidal air cells. 3. Chest x-ray on 06/18/2017 showed an endotracheal tube and nasogastric tube in place. There was mild patchy density in the left mid lung zone. 4. On 06/18/2017. A chest CTA was done that showed no acute central or segmental pulmonary embolis m. There were bilateral lower lobe and right upper lobe consolidation. 5. An echo was done on 07/2017 that showed left ventricular size normal. Ejection fraction was 55-60%. There was tricuspi d valve structurally normal and there was tricuspid regurgitation. 6. On 06/19/2017. A brain MRI was done that showed no evidence of acute intracranial process. 7. 06/20/2017, a CT angiography of brain and neck was done that showed no acute intracranial pathol ogy. There was no stenosis, occlusion, or aneurysm or dissection appreciated. 8. On 06/21/2017, nuclear medicine stress test was done that showed no evidence of ischemia with an EF of 61%. DISCHARGE MEDICATIONS: 1. Trazodone 150 mg p.o. at bedtime. 2. Cymbalta 20 mg p.o. daily. 3. Lyrica 75 mg p.o. b.i.d. 4. Augmentin 875 mg p.o. q.12 h. for 4 more days. HISTORY OF PRESENT ILLNESS AND HOSPITAL COURSE: This is a 52-year-old male with a past medical hist ory of chronic back pain, depression and a history of cardiac arrest back in 2010, who presented to [facility], brought in by EMS after being found down at his home. The patient had a GCS of 3 at his home. He will never lost pulse and was breathing okay, but secondary to airway protecti on. The patient was intubated on the field and subsequently brought into [facility]. The patient was extubated without complications within 24 hours of hospitalization. The patient continued to d o quite well on his own. The patient did report some feelings of lightheadedness that he has been h aving over an unknown period of time, but has never reported any syncopal episodes. At that time, p atient was found and presumably down for a number of minutes. His heart rate and blood pressure wer e within normal limits and it was thought likely not be cardiac in nature; however, an echo and stre ss test also did not show any abnormalities. The patient did not have any abnormalities on telemetr y during his hospital stay. The patient should follow up in the 2 weeks with Cardiology; and if bartholomew s so, consideration for further workup can be continued at that time. Patient cautioned to return t o the ER with seizure episodes. Patient encouraged to quit smoking. There was no evidence for stro ke during this episode time. There was also no evidence for pulmonary embolism and carotid arteries did not show any significant stenosis. The patient did have a significant history of substance abu se; however, at time of admission blood drug screen was negative. There was evidence for a pneumonia thought to be likely aspiration in nature upon his admission. He also had a white blood cell count of 22 at the time of admission. The patient was placed on Unasyn while in the ICU which was transitioned over to Augmentin and he will continue a 7 day course in [facility] outpatient setting. The patient was informed to follow up with his primary care physician within a week of discharge. DISPOSITION: Stable. DISCHARGE INSTRUCTIONS: 1. Location: Home. 2. Activity: As tolerated. 3. Diet: Regular. 4. Follow up with PCP in [place] within a week and follow up with Dr. Garcia within 1-2 weeks of isidro aguilar.
== END 2017-06-21 19:02 | disposition home or self-care (01) | DRG 208 ==
LOC: ERS 20:04 → EDBD 20:04 → CCU 20:37 → MERGE 20:37 → 2NO 06-20 13:10
PROVIDERS: ADMIT Family Medicine; ATTEND Family Medicine
PROC: 5A1935Z Respiratory Ventilation, Less than 24 Consecutive Hours (ICD-10-PCS; principal; 2017-06-18)
DX: J69.0 Pneumonitis due to inhalation of food and vomit (principal); J96.01 Acute respiratory failure with hypoxia; G93.40 Encephalopathy, unspecified; R55 Syncope and collapse; I25.10 Atherosclerotic heart disease of native coronary artery without angina pectoris; F41.9 Anxiety disorder, unspecified; S00.83XA Contusion of other part of head, initial encounter; G47.00 Insomnia, unspecified; R40.2431 Glasgow coma scale score 3-8, in the field [EMT or ambulance]; W18.30XA Fall on same level, unspecified, initial encounter; Y92.002 Bathroom of unspecified non-institutional (private) residence as the place of occurrence of the external cause; E03.9 Hypothyroidism, unspecified; F11.10 Opioid abuse, uncomplicated; Z86.73 Personal history of transient ischemic attack (TIA), and cerebral infarction without residual deficits; G89.29 Other chronic pain; Z86.74 Personal history of sudden cardiac arrest; F17.210 Nicotine dependence, cigarettes, uncomplicated; M54.5 Low back pain; Z23 Encounter for immunization; F32.9 Major depressive disorder, single episode, unspecified
CPT/HCPCS: 36415; 36416; 51702; 70450; 70496; 70498; 70551; 71010; 71275; 72125; 78452; 80048; 80053; 80306; 80307; 81003; 81015; 82550; 82553; 82805; 83605; 83735; 84443; 84484; 85014; 85018; 85025; 85610; 85730; 90471; 90682; 93005; 93010; 93017; 93306; 94002; 94003; 96365; 96375; 96376; 99292; A4216; A9500; G0008; J0295; J1650; J2785; J3010; J7050; Q2036; S0028

== ENCOUNTER 2022-03-19 20:02 | Inpatient (IN) | payer OTHER ==
[~2022-03-19 20:02] MED LIST: Iopamidol-370 76% 500 ML 1 ML ONE
[2022-03-19 21:12] LABS: #Basophils 0.1 thou/uL (0.0-0.2); #Eosinphils 0.1 thou/uL (0.0-0.7); #Lymphocytes 2.1 thou/uL (1.20-3.40); #Monocytes 0.8 thou/uL (0.11-0.59); %Basophils 0.8 % (0.0-1.0); %Lymphocytes 19.1 % (21.0-51.0); %Monocytes 7.3 % (0.0-10.0); %Neutrophils 71.7 % (42.0-75.0); Hemoglobin 15.6 g/dL (14.0-18.0); Mean Corpuscular HGB CONC 34.1 g/dL (32.0-36.0); Mean Corpuscular Hemoglobin 33.2 pg (27.0-31.0); Mean Corpuscular Volume 97.2 fL (78.0-98.0); Mean Platelet Volume 6.6 fL (7.4-10.4); Platelet Count 271 thou/uL (130-400); RBC Distribution Width 12.7 % (11.5-14.5); Red Blood Cell (RBC) Count 4.72 mill/uL (4.70-6.10); White Blood Cell (WBC) Count 11.1 thou/uL (4.8-10.8)
[2022-03-19 21:24] LABS: INR-International Normal Ratio 0.9; PTT 24.9 sec (22.9-36.1); Prothrombin Time 12.4 sec (12.0-14.7)
[2022-03-19 21:34] LABS: ALT (SGPT) 29 U/L (8-55); AST (SGOT) 32 U/L (5-34); Albumin 4.1 g/dL (3.5-5.0); Alkaline Phosphatase 59 U/L (40-110); Anion Gap 15 mmol/L (10-20); BUN (Urea Nitrogen) 11 mg/dL (8.4-25.7); Bilirubin, Total 0.7 mg/dL (0.2-1.2); Calc. Creatinine Clearance 0 mL/min (70-130); Calcium 9.5 mg/dL (7.8-10.44); Carbon Dioxide 23 mmol/L (22-29); Chloride 102 mmol/L (98-107); Estimated GFR 105; Globulin 3.2 g/dL (2.4-3.5); Glucose 98 mg/dL (70-105); Potassium 3.3 mmol/L (3.5-5.1); Protein, Total 7.3 g/dL (6.0-8.3); Sodium 137 mmol/L (136-145)
[2022-03-19] MEDS ORDERED: Clopidogrel Bisulfate 75 MG TAB ONE (21:50)
[2022-03-19] MEDS ORDERED: Acetaminophen 500 MG TAB ONE (22:18)
[2022-03-19] MEDS ORDERED: Nicotine 21 MG PATCH TD SCH (23:45)
[2022-03-19] MEDS ORDERED: Ondansetron PF 4 MG/2 ML Vial IVP PRN (23:47)
[2022-03-19] MEDS ORDERED: Guaifenesin DM 100-10/5 ML UDCUP PO PRN (23:47)
[2022-03-19] MEDS ORDERED: Bisacodyl 5 MG TAB PO PRN (23:47)
[2022-03-19] MEDS ORDERED: Senokot S 8.6-50 MG TAB PO PRN (23:47)
[2022-03-20] MEDS ORDERED: Atorvastatin Calcium 40 MG TAB PO SCH (00:30)
[2022-03-20 00:31] VITALS: BMI 27.2
[2022-03-20] MEDS ORDERED: Potassium Chloride 20 MEQ TAB PO SCH (00:31)
[2022-03-20] MEDS: Sodium Chloride 0.9% 1,000 ML IV SCH ×2 (01:02→14:52)
[2022-03-20] MEDS: Atorvastatin Calcium 40 MG TAB PO SCH ×3 (01:06→21:25)
[2022-03-20] MEDS: Acetaminophen 325 MG TAB PO PRN ×4 (04:02→21:23)
[2022-03-20 05:16] LABS: Hemoglobin A1c 5.3 % (4.0-6.0)
[2022-03-20] MEDS: Allopurinol 300 MG TAB PO SCH (09:49)
[2022-03-20] MEDS: Nicotine 21 MG PATCH TD SCH (15:02)
[2022-03-20] MEDS ORDERED: hydrALAZINE 20 MG/ML VIAL SLOW IVP PRN (21:25)
[2022-03-21] MEDS: Sodium Chloride 0.9% 1,000 ML IV SCH (02:01)
[2022-03-21] MEDS: Acetaminophen 325 MG TAB PO PRN ×3 (04:48→13:35)
[2022-03-21 05:07] LABS: #Basophils 0.1 thou/uL (0.0-0.2); #Eosinphils 0.2 thou/uL (0.0-0.7); #Lymphocytes 2.3 thou/uL (1.20-3.40); #Monocytes 0.8 thou/uL (0.11-0.59); #Neutrophils 3.5 thou/uL (1.40-6.50); %Basophils 0.8 % (0.0-1.0); %Eosinophils 2.6 % (0.0-10.0); %Lymphocytes 33.9 % (21.0-51.0); %Monocytes 11.5 % (0.0-10.0); %Neutrophils 51.2 % (42.0-75.0); Hemoglobin 15.1 g/dL (14.0-18.0); Mean Corpuscular HGB CONC 32.8 g/dL (32.0-36.0); Mean Corpuscular Hemoglobin 32.1 pg (27.0-31.0); Mean Corpuscular Volume 98.1 fL (78.0-98.0); Mean Platelet Volume 6.6 fL (7.4-10.4); Platelet Count 249 thou/uL (130-400); RBC Distribution Width 12.5 % (11.5-14.5); Red Blood Cell (RBC) Count 4.69 mill/uL (4.70-6.10); White Blood Cell (WBC) Count 6.7 thou/uL (4.8-10.8)
[2022-03-21 05:38] LABS: Anion Gap 14 mmol/L (10-20); BUN (Urea Nitrogen) 10 mg/dL (8.4-25.7); Calc. Creatinine Clearance 136 mL/min (70-130); Calcium 9.5 mg/dL (7.8-10.44); Carbon Dioxide 26 mmol/L (22-29); Chloride 104 mmol/L (98-107); Estimated GFR 106; Glucose 99 mg/dL (70-105); Sodium 140 mmol/L (136-145)
[2022-03-21 05:52] LABS: Free T4 (Free Thyroxine) 0.99 ng/dL (0.70-1.48); Thyroid Stimulating Hormone 5.5125 uIU/mL (0.35-4.94)
[2022-03-21] MEDS: Allopurinol 300 MG TAB PO SCH (08:51)
[2022-03-21] MEDS ORDERED: Clopidogrel Bisulfate 75 MG TAB PO SCH (09:00)
[2022-03-21 11:41] VITALS: BP 143/88; TEMP 97.4
[2022-03-21] MEDS: Nicotine 21 MG PATCH TD SCH (14:58)
== END 2022-03-21 15:29 | disposition home or self-care (01) | DRG 69 ==
LOC: ERS 20:02 → NEURO 21:55 → ERS 23:52
PROVIDERS: ADMIT Internal Medicine; ATTEND Internal Medicine
DX: G45.9 Transient cerebral ischemic attack, unspecified (principal); Z20.822 Contact with and (suspected) exposure to COVID-19; I10 Essential (primary) hypertension; E78.5 Hyperlipidemia, unspecified; E03.9 Hypothyroidism, unspecified; F32.A Depression, unspecified; F17.210 Nicotine dependence, cigarettes, uncomplicated; E87.6 Hypokalemia; Z88.6 Allergy status to analgesic agent; Z88.8 Allergy status to other drugs, medicaments and biological substances; Z86.73 Personal history of transient ischemic attack (TIA), and cerebral infarction without residual deficits; Z98.890 Other specified postprocedural states; Z82.61 Family history of arthritis; Z82.49 Family history of ischemic heart disease and other diseases of the circulatory system; Z81.8 Family history of other mental and behavioral disorders; Z71.6 Tobacco abuse counseling
CPT/HCPCS: 36415; 36416; 70450; 70496; 70498; 70551; 71045; 72141; 80048; 80053; 80061; 83036; 83605; 84439; 84443; 84481; 85025; 85610; 85730; 87040; 93005; 93306; J0360; J7050; Q9967; U0003; U0005